=== PATIENT | female | born 1990 | race Caucasian/White ===

== ENCOUNTER 2016-09-21 13:24 | Emergency (ER) | payer OTHER ==
[2016-09-21 15:53] VITALS: BP 115/85
== END 2016-09-21 15:53 | disposition home or self-care (01) ==
LOC: ED 13:24
DX: S42.402A Unspecified fracture of lower end of left humerus, initial encounter for closed fracture (principal); X58.XXXA Exposure to other specified factors, initial encounter; Y93.89 Activity, other specified; Y99.8 Other external cause status; Y92.89 Other specified places as the place of occurrence of the external cause
CPT/HCPCS: J1885

== ENCOUNTER 2018-07-08 17:28 | Emergency (ER) | payer OTHER | END 2018-07-08 20:19 | disposition left against medical advice (07) | LOC: ED 17:28 | DX: Z53.21 Procedure and treatment not carried out due to patient leaving prior to being seen by health care provider (principal) ==

== ENCOUNTER 2020-01-29 09:54 | Emergency (ER) | payer OTHER ==
[~2020-01-29] VITALS: Ht 154.9 cm; Wt 81.2 kg
[2020-01-29 09:57] VITALS: Ht 154.9 cm; Wt 81.2 kg
[2020-01-29 11:53] LABS: CHLORIDE SERUM 103 mmol/L (98-107); CREATININE SERUM 0.9 mg/dL (0.6-1.0); GFR1 > 60 mL/min; GLUCOSE SERUM 82 mg/dL (74-106); POTASSIUM SERUM 4.4 mmol/L (3.5-5.1); SODIUM SERUM 137 mmol/L (136-145)
[2020-01-29 11:56] LABS: BASOPHIL % 0.7 % (0-2); PLATELET COUNT 267 x10^3mcL (130-400); RED CELL DISTRIBUTION WIDTH 13.6 % (11.5-14.5)
[2020-01-29 11:57] LABS: ALBUMIN 4.3 g/dL (3.4-5.0); ALKALINE PHOSPHATASE 51 U/L (46-116); ALT/SGPT 27 U/L (14-59); AMYLASE 29 U/L (25-115); AST/SGOT 13 U/L (15-37); BILIRUBIN TOTAL 1.5 mg/dL (0.20-1.00); LIPASE 72 IU/L (73-393); TOTAL PROTEIN, SERUM 7.9 g/dL (6.4-8.2)
[2020-01-29 14:04] VITALS: BP 118/74
== END 2020-01-29 14:04 | disposition home or self-care (01) ==
LOC: ED 09:54
PROVIDERS: Emergency Medicine
DX: K21.9 Gastro-esophageal reflux disease without esophagitis (principal); Z90.49 Acquired absence of other specified parts of digestive tract

== ENCOUNTER 2020-02-17 07:23 | Emergency (ER) | payer OTHER ==
[~2020-02-17] VITALS: Ht 154.9 cm; Wt 80.7 kg
[2020-02-17 07:30] VITALS: Ht 154.9 cm; Wt 80.7 kg
[2020-02-17 08:42] VITALS: BP 101/75
== END 2020-02-17 08:42 | disposition home or self-care (01) ==
LOC: ED 07:23
DX: K27.9 Peptic ulcer, site unspecified, unspecified as acute or chronic, without hemorrhage or perforation (principal); K21.9 Gastro-esophageal reflux disease without esophagitis; Z90.49 Acquired absence of other specified parts of digestive tract

== ENCOUNTER 2020-03-11 21:57 | Emergency (ER) | payer OTHER, SELFPAY ==
[~2020-03-11] VITALS: Ht 154.9 cm; Wt 72.6 kg
[2020-03-11 22:02] VITALS: BP 120/78; Ht 154.9 cm; Wt 72.6 kg
== END 2020-03-11 22:39 | disposition home or self-care (01) ==
LOC: ED 21:57
DX: U07.1 COVID-19 (principal); K21.9 Gastro-esophageal reflux disease without esophagitis; Z90.49 Acquired absence of other specified parts of digestive tract
CPT/HCPCS: U0003

== ENCOUNTER 2020-03-13 21:01 | Emergency (ER) | payer OTHER ==
[~2020-03-13] VITALS: Ht 154.9 cm; Wt 72.6 kg
[2020-03-13 21:02] VITALS: Ht 154.9 cm; Wt 72.6 kg
[2020-03-13 21:37] VITALS: BP 122/84
== END 2020-03-13 21:37 | disposition home or self-care (01) ==
LOC: ED 21:01
DX: U07.1 COVID-19 (principal); K21.9 Gastro-esophageal reflux disease without esophagitis; Z90.49 Acquired absence of other specified parts of digestive tract; Z98.890 Other specified postprocedural states